=== PATIENT | female | born 1990 | race Caucasian/White ===

== ENCOUNTER 2020-06-27 06:00 | Inpatient (IN) ==
[2020-06-27] MEDS ORDERED: Metoclopramide 10 MG/2 ML VIAL IVP PRN (06:04)
[2020-06-27] MEDS ORDERED: *HR* FentaNYL (PF) 100 MCG/2 ML VIAL IVP PRN (06:04)
[2020-06-27] MEDS ORDERED: miSOPROStoL 25 MCG TABLET PO PRN (06:04)
[2020-06-27] MEDS ORDERED: Azithromycin 500 MG in 0.9 % Sodium Chloride 250 ML IVPB ONE (06:04)
[2020-06-27] MEDS ORDERED: Naloxone 0.4 MG/ML INJ IVP PRN (06:04)
[2020-06-27] MEDS ORDERED: Ondansetron 4 MG/2 ML VIAL IVP PRN (06:04)
[2020-06-27] MEDS ORDERED: Famotidine 20 MG/2 ML VIAL IVP PRN (06:04)
[2020-06-27] MEDS ORDERED: Lidocaine 1% 20 ML MDV INFILT PRN (06:04)
[2020-06-27] MEDS ORDERED: Ringers Solution, Lactated 1,000 ML IVC SCH (06:15)
[2020-06-27 06:33] LABS: Basophils % 0.3 %; Eosinophils # 0.1 K/mcL (0.0-0.6); Eosinophils % 0.8 %; Hematocrit 35.7 % (35.3-44.9); Hemoglobin 11.3 g/dL (11.5-15.4); Immature Granulocytes % 0.7 % (0-4); Lymphocytes # 2.2 K/mcL (0.6-4.6); Lymphocytes % 18.6 %; Mean Corpuscular HGB Conc 31.7 g/dL (31.6-35.5); Mean Corpuscular Volume 82.1 fL (83.0-100.0); Mean Platelet Volume 9.9 fL (9.4-12.4); Monocytes # 1.1 K/mcL (0.0-1.3); Monocytes % 9.4 %; Neutrophils # 8.3 K/mcL (1.6-8.9); Platelet Count 278 K/mcL (140-400); Red Blood Count 4.35 M/mcL (3.82-4.97); Red Cell Distribution Width 13.9 % (11.5-14.5); Segmented Neutrophils % 70.2 %; White Blood Count 11.9 K/mcL (4.3-11.1)
[2020-06-27 06:41] LABS: Amphetamine Screen,Urine Negative ng/mL (Cutoff=1000); Barbiturate Screen,Urine Negative ng/mL (Cutoff=200)
[2020-06-27 06:42] LABS: Benzodiazepines Screen,Urine Negative ng/mL (Cutoff=300); Cannabinoid Screen,Urine Negative ng/mL (Cutoff = 50); Cocaine Screen,Urine Negative ng/mL (Cutoff= 300); Opiate Screen,Urine Negative ng/mL (Cutoff=300); Phencyclidine Screen,Urine Negative ng/mL (Cutoff=25)
[2020-06-27] MEDS ORDERED: EPHEDrine 50 MG/ML VIAL IVP PRN (10:17)
[2020-06-27] MEDS ORDERED: *HR* FentaNYL (PF) 100 MCG/2 ML VIAL EP ONE (10:17)
[2020-06-27] MEDS ORDERED: Bupivacaine-MPF 0.25% 10 ML VIAL EP ONE (10:17)
[2020-06-27] MEDS ORDERED: Epidural Premix (fent/bupiv) 110 ML EP ONE (10:23)
[2020-06-27] MEDS ORDERED: Epidural Premix (fent/bupiv) 110 ML EP SCH (10:30)
[2020-06-27] MEDS ORDERED: Oxytocin 20 units/ LR 1000 mL 20 UNIT/1,000 ML BAG IVC SCH ×2 (12:15→22:48)
[2020-06-27] MEDS ORDERED: Acetaminophen 325 MG TABLET PO PRN (22:48)
[2020-06-27] MEDS ORDERED: Ibuprofen 600 MG TABLET PO PRN (22:48)
[2020-06-27] MEDS ORDERED: Benzocaine/Menthol 56 GM AEROSOL SPRAY TP PRN (22:48)
[2020-06-27] MEDS ORDERED: Lanolin 7 G OINT...G. TP PRN (22:48)
[2020-06-28] MEDS ORDERED: Prenatal Vit/FA 1 EACH TABLET PO SCH (09:00)
[2020-06-28 15:20] VITALS: BP 107/71
[2020-06-28] MEDS ORDERED: FLU Vac QV 20-21 (6Month+)/PF 0.5 ML SYRINGE IM ONE (15:39)
== END 2020-06-28 18:33 | disposition home or self-care (01) | DRG 807 ==
LOC: 1NENULAB 06:02 → 1NENUOBS 22:34
PROVIDERS: ADMIT Registered Nurse; ATTEND Registered Nurse